=== PATIENT | male | born 2000 | race African-American/Black ===

== ENCOUNTER 2020-02-28 12:40 | Emergency (ER) | payer MEDICAID ==
[~2020-02-28] VITALS: Ht 185.4 cm; Wt 69.0 kg
[2020-02-28] MEDS ORDERED: LIDOCAINE HCL/EPINEPHRINE 1%-EPI 1:100,000 20 ML VIAL INFIL ONE (13:45)
[2020-02-28 14:35] VITALS: BP 109/78
== END 2020-02-28 14:36 | disposition home or self-care (01) ==
LOC: ER 12:40
DX: L02.818 Cutaneous abscess of other sites (principal)
CPT/HCPCS: 10060; 99282